=== PATIENT | female | born 1990 | race Two or more races ===

== ENCOUNTER 2017-12-13 14:34 | Outpatient (CLI) | payer OTHER ==
[~2017-12-13] VITALS: Ht 152.4 cm; Wt 62.6 kg
== END 2017-12-13 14:50 | disposition home or self-care (01) ==
LOC: OFIC 805 14:34
DX: H61.23 Impacted cerumen, bilateral (principal)

== ENCOUNTER 2018-04-22 13:56 | Outpatient (CLI) | payer OTHER | END 2018-04-22 14:05 | disposition home or self-care (01) | LOC: SONOGRAMA 13:56 | DX: R10.31 Right lower quadrant pain (principal) ==

== ENCOUNTER → 2021-08-10 | Outpatient (CLI) | payer OTHER | END | disposition home or self-care (01) | LOC: PPH VACUNA 08:00 | PROVIDERS: ATTEND Emergency Medicine Pediatric Emergency Medicine | DX: Z23 Encounter for immunization (principal) ==

== ENCOUNTER 2022-05-15 16:19 | Outpatient (CLI) | payer OTHER | END 2022-05-15 16:26 | disposition home or self-care (01) | LOC: LAB 16:19 | PROVIDERS: ATTEND Internal Medicine Hematology & Oncology | DX: N80.6 Endometriosis in cutaneous scar (principal); D64.9 Anemia, unspecified; R74.9 Abnormal serum enzyme level, unspecified ==